=== PATIENT | female | born 1945 | race Caucasian/White ===

== ENCOUNTER → 2016-11-06 | Outpatient (CLI) | payer OTHER, MEDICARE | LOC: FIMAGING 14:41 | DX: Z12.31 Encounter for screening mammogram for malignant neoplasm of breast (principal) | CPT/HCPCS: G0202 ==

== ENCOUNTER 2016-11-07 13:07 | Emergency (ER) | payer OTHER, MEDICARE ==
[2016-11-07 13:12] VITALS: BP 126/73; PULSE 79; RESP 18; TEMP 97.5; O2SAT 97
[2016-11-07] MEDS ORDERED: LETS SOLN TOPICAL 1 EA SYR TP ONE (13:27)
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
== END 2016-11-07 14:45 | disposition home or self-care (01) ==
DX: S00.81XA Abrasion of other part of head, initial encounter (principal); S00.511A Abrasion of lip, initial encounter; S09.93XA Unspecified injury of face, initial encounter; Z87.891 Personal history of nicotine dependence; V19.9XXA Pedal cyclist (driver) (passenger) injured in unspecified traffic accident, initial encounter

== ENCOUNTER → 2018-03-19 | Outpatient (CLI) | payer OTHER, MEDICARE | LOC: FIMAGING 14:12 | PROVIDERS: ATTEND Internal Medicine | DX: Z13.820 Encounter for screening for osteoporosis (principal); Z78.0 Asymptomatic menopausal state ==